=== PATIENT | male | born 2000 | race Caucasian/White ===

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

== ENCOUNTER 2023-02-17 14:13 | Inpatient (IN) ==
--- NOTE | 2023-02-17 14:38 | ED Triage Note ---
Date of Service February 17, 2023 Provider in Triage Author: Iris Don History of Present Illness This patient was briefly evaluated while in triage. An abbreviated physical exam was performed. This patient is a 23-year-old Male who presents to the ED for evaluation of CP, SOB, cough, tremors/weakness in left side started in Dr. Dukes's office Physical Exam GENERAL: NAD CARDIOVASCULAR: RRR RESPIRATORY: CTA ABDOMEN: BS x 4. Nontender to palpation. Initial orders for labs and / or imaging were placed and patient was placed in the waiting area until a bed is available. Please see further documentation for the full ED course.
--- NOTE | 2023-02-17 15:30 | XRay Report ---
XR chest 1V not portable HISTORY: 23 years-old Male CP, SOB, acute shortness of breath with chest pain COMPARISON: 09/01/2021 TECHNIQUE: PA view of the chest FINDINGS: Cardiomediastinal and hilar silhouettes are within normal limits. No pneumothorax, pleural effusion o r airspace consolidation. The bones appear grossly intact. There is mild levoscoliosis of the upper t horacic spine. IMPRESSION: No acute process. ACT 112: Negative or not required by law. The above report was generated using voice recognition software. It may contain grammatical, syntax o r spelling errors. Electronically signed by: Ramos Haque M.D. 02/17/2023 3:29 PM
--- NOTE | 2023-02-17 16:13 | CT Scan Report ---
CT SCAN OF THE BRAIN WITHOUT IV CONTRAST CLINICAL HISTORY: Left-sided weakness. COMPARISON STUDY: CT of the brain dated 03/26/2021. TECHNIQUE: Unenhanced axial CT scan of the brain is performed from the vertex to the skull base. A d ose lowering technique was utilized adhering to the principles of ALARA. CT DOSE: 547.75 mGy.cm FINDINGS: Brain parenchyma: The brain parenchyma is normal in appearance. There is no hemorrhage, mass effect, or evidence of acute territorial ischemia by CT criteria. Daugherty-white matter differentiation is preser anca. No extra-axial fluid collection is seen. Ventricles, sulci, cisterns: Normal in configuration. Cavum septum pellucidum is incidentally noted. Intracranial vasculature: The visualized intracranial vasculature at the skull base is normal in appe arance. Calvarium: Unremarkable. Sinuses and mastoids: There is mild mucosal thickening in the left sphenoid sinus. The remaining visu alized paranasal sinuses are clear. The mastoid air cells are well pneumatized. Orbits: The bony orbits are grossly intact. IMPRESSION: No acute intracranial abnormality. ACT 112: Negative or not required by law. Electronically signed by: Leighton Singh M.D. 02/17/2023 4:11 PM
[2023-02-17 17:05] LABS: Basophils # (auto) 0.06 K/uL (0.00-0.20); Basophils % (auto) 0.7 %; Eosinophils # (auto) 0.33 K/uL (0.00-0.50); Eosinophils % (auto) 3.8 %; Hematocrit (blood only) 45.6 % (42.0-52.0); Hemoglobin 16.5 g/dl (14.0-18.0); Immature Granulocytes % (auto) 1.2 %; Lymphocytes # (auto) 1.89 K/uL (1.20-3.40); Lymphocytes % (auto) 21.9 %; Mean Corpuscular Hemoglobin 32.2 pg (25.0-34.0); Mean Corpuscular Hgb Conc 36.2 g/dL (32.0-36.0); Mean Corpuscular Volume 89.1 fL (80.0-100.0); Mean Platelet Volume 9.2 fL (9.4-12.4); Monocytes # (auto) 0.58 K/uL (0.11-0.59); Monocytes % (auto) 6.7 %; Neutrophils # (auto) 5.68 K/uL (1.40-6.50); Neutrophils % (auto) 65.7 %; Platelet Count 232 K/uL (130-400); RDW Standard Deviation 39.5 fL (36.4-46.3); Red Blood Count 5.12 M/uL (4.70-6.10); White Blood Count 8.64 K/ul (4.8-10.8)
[2023-02-17 17:18] LABS: Alanine Aminotransferase 26 U/L (7-52); Albumin Globulin Ratio 1.4 (0.9-2); Albumin Level 4.6 gm/dl (3.4-5.0); Alkaline Phosphatase 53 U/L (34-104); Anion Gap 8 (3-11); Aspartate Aminotransferase 23 U/L (13-39); BUN Creatinine Ratio 14.3 (10-20); Bilirubin,Total 0.6 mg/dl (0.2-1.0); Blood Urea Nitrogen 11 mg/dl (6-23); Calcium 8.7 mg/dl (8.6-10.3); Carbon Dioxide 29 mmol/L (21-32); Chloride 104 mmol/L (98-107); Creatinine Clr Calc Pharmacy 166.7 ml/min; Est GFR (African American) > 150.0 ml/min; Est GFR (Non-African American) 129.7 ml/min; Globulin 3.2 gm/dl (2.5-4.0); Glucose 87 mg/dl (70-99(Fasting)); Potassium 3.8 mmol/L (3.5-5.1); Sodium 141 mmol/L (136-145); Total Protein 7.8 gm/dl (6.0-8.3)
[2023-02-17 17:21] LABS: Troponin I High Sensitivity < 2.3 pg/ml (0-20)
[2023-02-17 17:32] LABS: Partial Thromboplastin Ratio 1.1; Partial Thromboplastin Time 32 Seconds (21-31); Prothrombin Time 10.6 Seconds (9.0-12.0)
--- NOTE | 2023-02-17 18:04 | Emergency Department Note ---
Impression & Plan Acute left-sided muscle weakness, Numbness and tingling of left arm and leg, Autistic disorder ED Provider Note NAME: INDY ALMAZAN AGE: 23 SEX: M : 2000 ARRIVES VIA: Walk-In INFORMANT: Patient, ED PROVIDER(S): Bennett Krishna MD CHIEF COMPLAINT: Weakness MEDICAL DECISION MAKING: Patient presented due to concern for left-sided weakness and numbness. The patient does have weakness of the left arm and leg. Patient was initially seen in triage no stroke alert initiated but the patient has had symptoms ongoing since yesterday not a TNK candidate. I did speak with charge nurse in order to expedite his CT angiography of the head and neck as well as chest could be completed as the patient had also complained of some hemoptysis. MRI brain with and without contrast also ordered given the patient's prior history of thyroid malignancy. Patient's initial blood work was obtained and an IV was established. Blood work is grossly unremarkable. Patient has a normal white count H&H and platelet count with normal kidney function electrolytes. Troponin is not elevated. A TSH was added. Patient's MR brain is negative. Patient's CT head negative and chest x-ray negative. CT angiography is pending did speak with the admitting service. CTA of the head neck and chest negative. Patient was admitted to the medicine service after discussion with Dr. Bragg. Of note patient's symptoms are not progressively ascending i.e. GBS. Also not descending like botulinum or bulbar in nature like myasthenia. Discussion w/ other healthcare providers: Dr. Rodriguez inpatient medicine service Prior /Outside records reviewed: I reviewed an endocrinology visit note from Dr. Dukes from prior to the visit. The patient was seen and was noted to have a known history of papillary thyroid carcinoma and secondary hypothyroidism. Additional lab orders for put in place and the patient was to be started on levothyroxine 175 mcg daily. Differential diagnosis: Infection, dehydration, metabolic abnormality, hypo/hyperglycemia, electrolyte imbalance, anemia, UTI, pneumonia, thyroid dysfunction among others were considered. Diagnostics, as interpreted by me: ECG: Sinus bradycardia, rate of 59, normal intervals, normal axis no ST elevations. No significant change for comparison September 01, 2021 per Cardiac monitoring: An order was placed for continuous cardiac monitoring. The monitor shows a rate of 65 with sinus rhythm. Patient was placed on pulse oximetry Medical decision rules: None Imaging studies: I informally interpreted the patient's chest x-ray which does not show obvious pneumonia or pneumothorax with formal report to follow. I informally interpreted the patient's CT head which does not show obvious ICH HPI: Patient presents due to concern for weakness and associated fatigue complaining of decreased sensation in the left side along with associated weakness. The patient states that initially began around 2 PM but after further discussion the patient has had chronic weakness over the last several days which may have also been present yesterday but acutely worse around 2 PM. The patient also reports that he had a bout of this the last time he had an issue with his thyroid and was noted to have thyroid cancer. The patient did have a thyroidectomy and was and follow-up in clinic with Dr. Dukes with endocrinology where he developed the symptoms. Patient also does complain of some congestion. No alcohol or tobacco use. No falls or trauma. No prior history of stroke or mini stroke with the patient did require some therapy due to concern for weakness on his left side that he had 2 years ago. PAST MEDICAL HISTORY: See Below PAST SURGICAL HISTORY: See Below SOCIAL HISTORY: See Below HOME MEDICATIONS: See Below ALLERGIES: See Below VITALS: See Below PHYSICAL EXAMINATION: GENERAL: NAD, non-toxic. EYE EXAM: Normal conjunctiva. PERRL, no anisocoria and EOM's grossly intact w/o pain. OROPHARYNX: Moist mucus membranes, grossly normal dentition. NECK: Supple, no nuchal rigidity, no adenopathy, non-tender. No signs of meningismus. FROM of the neck with good chin to chest and neck extension. No stridor. LUNGS: Clear to auscultation. Normal chest wall mechanics. HEART: NSR, no MRG. ABDOMEN: Abdomen soft, non-tender, no masses, no rebound or guarding. BACK: No CVA TTP. SKIN: No rashes and no bruising. UPPER EXTREMITIES: Upper extremities are grossly normal. LOWER EXTREMITIES: Grossly normal, no edema. NEURO EXAM: A&O x3, cranial nerves II-XII grossly intact, normal speech, moves all 4 extremities but does have 4-5 strength in the left upper and left lower extremities. Past Med/Surg History Medical History Anal fissure follows with GI History of nerve impingement back Hx of Crohn's disease History of COVID-19 end of 12/2020--sneezing/headache--no issues now Nausea and vomiting after administration of anesthetic agent Hx of [place] cancer [place] [facility] [place] Convulsions hx of, last seizure age 9 Hx of gastric ulcer Iron deficiency anemia gets once a month infusions along w/ vitamin b-12 injections Post traumatic stress disorder Attention deficit disorder (ADD) Asperger syndrome per mother pt can read/write and sign own consents Stroke-like symptoms was related to thyroid cancer per pt's mom > ruled out stroke at [facility] per pt's mother approx 1 year ago Hx of seizure disorder last seizure age 9 > no longer follows with neuro Anemia Anxiety Esophagitis hx Gastritis hx Acid reflux Surgical History S/P epidural steroid injection Status post biopsy of thyroid gland malignant History of [place] [facility] for thyroid cancer > one dose radiation following Family history of reaction to anesthesia MOTHER-NAUSEA/VOMITTING History of esophagogastroduodenoscopy (EGD) History of colonoscopy History of ear surgery LEFT EAR DRUM REPAIR>PATCH Family History Father No significant active problems Mother No significant active problems Family history of diabetes mellitus Allergies Mother Diabetes Kidney stones Sister Crohn's disease Kidney stones Asthma Bleeding disorder Grandfather Stomach cancer Thyroid ca Diabetes Grandmother Stomach cancer Thyroid ca Diabetes Ulcerative colitis Grandmother (Maternal) Family history of diabetes mellitus Grandfather (Maternal) Hypertension Heart disease Family/Other Allergies "siblings" per new patient form Denies family history of Ovarian cancer Prostate cancer Myocardial infarction Breast cancer Colorectal cancer Social History Smoking Status: Current some day smoker Tobacco Type: Cigarettes Cigarettes Per Day: Only rare usage. A pack could last for months.; Second Hand Exposure: No; Do You Dip or Chew Tobacco: No; Hx Alcohol Use: No Hx Substance Use: No Preferred Language: Telugu Communication Ability: Effective Communication Ability Comment: pt can sign own consents Brokerage Office Manager Required: No Beliefs That Will Affect Care: None marital status: Single Current Living Situation: Parent and Family Current Living Situation Comment: lives with mother and father current occupational status: employed current occupation: Does oil changes at [employer] How many Children do You have: 0 Feels Safe at Home: Yes Childhood Exposure to Second-Hand Smoke: No Diet: regular caffeine: Yes Dental Care, Regularly: No Physical Activity Frequency: Daily Seatbelt Use: always Sunscreen Use: No Assistive Devices: None Allergies Allergies Allergy/AdvReac Type Severity Reaction Status Date / Time clonazepam Allergy Severe stroke/seizure Verified 02/17/23 13:06 like symptoms risperidone [From Risperdal] Allergy Severe stroke/seizure Verified 02/17/23 13:06 like symptoms valproic acid Allergy Severe stroke/seizure Verified 02/17/23 13:06 like symptoms adhesive Allergy Unknown skin Verified 02/17/23 13:06 "breaks out" nickel Allergy Unknown psoriasis Verified 02/17/23 13:06 surgical glue Allergy Intermediate Redness of Uncoded 02/17/23 13:06 Skin Home Meds Home Medications Medication Instructions Recorded Confirmed Tums 750 mg PO QAM 10/15/21 02/17/23 cyanocobalamin (vitamin B-12) 1,000 mcg subcut MONTHLY 02/17/23 02/17/23 1,000 mcg/mL injection solution escitalopram oxalate 5 mg tablet 5 mg PO QAM 02/17/23 02/17/23 famotidine 40 mg tablet 40 mg PO QAM 02/17/23 02/17/23 levothyroxine 150 mcg tablet 150 mcg PO DAILYBB 02/17/23 02/17/23 mercaptopurine 50 mg tablet 75 mg PO QAM Crohns colitis 02/17/23 02/17/23 sucralfate 1 gram tablet 0.5 g PO BID 02/17/23 02/17/23 Previous Rx's Medication Instructions Recorded buspirone 7.5 mg tablet 7.5 mg PO TID PRN anxiety #90 tabs 12/13/20 infliximab-axxq 100 mg intravenous See Rx Instructions IV .COMPLEX #5 10/30/21 solution (Avsola) ea guanfacine 1 mg tablet 1.5 mg (1.5 x 1 mg) PO BID #270 01/02/22 tabs cholecalciferol (vitamin D3) 10 800 unit PO DAILY vitamin D 11/13/22 mcg (400 unit) capsule insufficiency 1 month #60 caps methylphenidate HCl 5 mg tablet 5 mg PO QAM #30 tabs 02/01/23 levothyroxine 175 mcg tablet 175 mcg PO DAILY #30 tabs 02/18/23 Results & Data (ED) Vital Signs Vital Signs - 24 hr 02/17/23 14:36 02/17/23 16:41 02/17/23 18:37 Temperature 36.5 C Temperature Source Temporal Artery Scan Pulse Rate 73 Pulse Rate [Right Finger] 62 66 Pulse Rate from SpO2 Sensor Pulse Rhythm Regular Pulse Strength Normal Respiratory Rate 20 16 18 Respiratory Effort / Characteristics Non-Labored Spontaneous Non-Labored Respiratory Depth Normal Normal Respiratory Pattern Regular Blood Pressure 138/79 Blood Pressure [Right Arm] 141/79 H 130/80 Blood Pressure Mean 98 Blood Pressure Mean [Right Arm] 99 96 Blood Pressure Position Sitting Pulse Oximetry 96 99 95 Oxygen Delivery Method Room Air Room Air Room Air Sepsis Recent Fever Within 48 Hours No Sepsis New/Unexplained Change in Mental Status No Sepsis Action Taken by Nursing No Action Required 02/17/23 18:49 02/17/23 18:50 02/17/23 19:00 Temperature Temperature Source Pulse Rate 79 73 69 Pulse Rate [Right Finger] Pulse Rate from SpO2 Sensor 73 71 Pulse Rhythm Pulse Strength Respiratory Rate 18 20 Respiratory Effort / Characteristics Respiratory Depth Respiratory Pattern Blood Pressure Blood Pressure [Right Arm] Blood Pressure Mean Blood Pressure Mean [Right Arm] Blood Pressure Position Pulse Oximetry 100 99 Oxygen Delivery Method Sepsis Recent Fever Within 48 Hours Sepsis New/Unexplained Change in Mental Status Sepsis Action Taken by Nursing 02/17/23 19:00 02/17/23 19:23 02/17/23 20:10 Temperature Temperature Source Pulse Rate 78 Pulse Rate [Right Finger] Pulse Rate from SpO2 Sensor 79 Pulse Rhythm Pulse Strength Respiratory Rate 20 Respiratory Effort / Characteristics Respiratory Depth Respiratory Pattern Blood Pressure 133/82 138/86 Blood Pressure [Right Arm] Blood Pressure Mean 102 105 Blood Pressure Mean [Right Arm] Blood Pressure Position Pulse Oximetry 100 Oxygen Delivery Method Sepsis Recent Fever Within 48 Hours Sepsis New/Unexplained Change in Mental Status Sepsis Action Taken by Nursing 02/17/23 20:11 02/17/23 20:54 02/17/23 21:00 Temperature Temperature Source Pulse Rate Pulse Rate [Right Finger] Pulse Rate from SpO2 Sensor 63 71 60 Pulse Rhythm Pulse Strength Respiratory Rate Respiratory Effort / Characteristics Respiratory Depth Respiratory Pattern Blood Pressure Blood Pressure [Right Arm] Blood Pressure Mean Blood Pressure Mean [Right Arm] Blood Pressure Position Pulse Oximetry 99 98 97 Oxygen Delivery Method Sepsis Recent Fever Within 48 Hours Sepsis New/Unexplained Change in Mental Status Sepsis Action Taken by Nursing 02/17/23 21:00 02/17/23 21:30 02/17/23 21:30 Temperature Temperature Source Pulse Rate Pulse Rate [Right Finger] Pulse Rate from SpO2 Sensor 62 Pulse Rhythm Pulse Strength Respiratory Rate Respiratory Effort / Characteristics Respiratory Depth Respiratory Pattern Blood Pressure 126/73 123/78 Blood Pressure [Right Arm] Blood Pressure Mean 83 92 Blood Pressure Mean [Right Arm] Blood Pressure Position Pulse Oximetry 97 Oxygen Delivery Method Sepsis Recent Fever Within 48 Hours Sepsis New/Unexplained Change in Mental Status Sepsis Action Taken by Nursing 02/17/23 22:00 02/17/23 22:00 Temperature Temperature Source Pulse Rate Pulse Rate [Right Finger] Pulse Rate from SpO2 Sensor 65 Pulse Rhythm Pulse Strength Respiratory Rate 16 Respiratory Effort / Characteristics Respiratory Depth Respiratory Pattern Blood Pressure 141/96 H Blood Pressure [Right Arm] Blood Pressure Mean 113 Blood Pressure Mean [Right Arm] Blood Pressure Position Pulse Oximetry 97 Oxygen Delivery Method Sepsis Recent Fever Within 48 Hours Sepsis New/Unexplained Change in Mental Status Sepsis Action Taken by Jail Medications Current Medication List: was personally reviewed by me Laboratory Data Attestation: I reviewed the patient's lab results. 02/18/23 07:45 02/18/23 07:45 Lab Results 02/17/23 Range/Units 16:41 WBC 8.64 (4.8-10.8) K/ul RBC 5.12 (4.70-6.10) M/uL Hgb 16.5 (14.0-18.0) g/dl Hct 45.6 (42.0-52.0) % MCV 89.1 (80.0-100.0) fL MCH 32.2 (25.0-34.0) pg MCHC 36.2 H (32.0-36.0) g/dL RDW Std Deviation 39.5 (36.4-46.3) fL RDW Coeff of Santos 12.0 (11.5-14.5) % Plt Count 232 (130-400) K/uL MPV 9.2 L (9.4-12.4) fL Immature Gran % (Auto) 1.2 % Neut % (Auto) 65.7 % Lymph % (Auto) 21.9 % [place] % (Auto) 6.7 % Eos % (Auto) 3.8 % Baso % (Auto) 0.7 % Neut # (Auto) 5.68 (1.40-6.50) K/uL Lymph # (Auto) 1.89 (1.20-3.40) K/uL [place] # (Auto) 0.58 (0.11-0.59) K/uL Eos # (Auto) 0.33 (0.00-0.50) K/uL Baso # (Auto) 0.06 (0.00-0.20) K/uL Immature Gran # (Auto) 0.10 (0.01-0.20) K/uL PT 10.6 (9.0-12.0) Seconds INR 1.0 (0.9-1.1) APTT 32 H (21-31) Seconds PTT Ratio 1.1 Sodium 141 (136-145) mmol/L Potassium 3.8 (3.5-5.1) mmol/L Chloride 104 (98-107) mmol/L Carbon Dioxide 29 (21-32) mmol/L Anion Gap 8 (3-11) BUN 11 (6-23) mg/dl Creatinine 0.77 (0.6-1.4) mg/dl Est Cr Clr Drug Dosing 166.7 ml/min Est GFR ( Amer) > 150.0 ml/min Est GFR (Non-Af Amer) 129.7 ml/min BUN/Creatinine Ratio 14.3 (10-20) Glucose 87 (70-99(Fasting)) mg/dl Calcium 8.7 (8.6-10.3) mg/dl Magnesium 2.0 (1.7-2.4) mg/dl Total Bilirubin 0.6 (0.2-1.0) mg/dl AST 23 (13-39) U/L ALT 26 (7-52) U/L Alkaline Phosphatase 53 (34-104) U/L Troponin I High Sens < 2.3 (0-20) pg/ml Total Protein 7.8 (6.0-8.3) gm/dl Albumin 4.6 (3.4-5.0) gm/dl Globulin 3.2 (2.5-4.0) gm/dl Albumin/Globulin Ratio 1.4 (0.9-2) TSH 37.706 H (0.300-4.500) uIu/ml Free T4 0.87 (0.61-1.60) ng/dl Administered Medications Buspirone HCl (Buspirone 7.5 Mg Tab) 7.5 mg PO TID PRN PRN Reason: anxiety Stop: 03/20/23 00:07 Last Admin: 02/18/23 10:59 Dose: 7.5 mg Documented By: NICHOLAS Escitalopram Oxalate (Escitalopram Oxalate 10 Mg Tab) 5 mg PO DAILY [facility] Stop: 03/20/23 08:59 Last Admin: 02/18/23 10:58 Dose: 5 mg Documented By: NICHOLAS Famotidine (Famotidine 40 Mg Tablet) 40 mg PO DAILY [facility] Stop: 03/20/23 08:59 Last Admin: 02/18/23 10:58 Dose: 40 mg Documented By: NICHOLAS Guanfacine HCl (Guanfacine Hcl 1 Mg Tab) 1.5 mg PO BID [facility] Stop: 03/20/23 08:59 Last Admin: 02/18/23 10:56 Dose: 1.5 mg Documented By: NICHOLAS Levothyroxine Sodium (Levothyroxine Sodium 150 Mcg Tablet) 150 mcg PO DAILYBB [facility] Stop: 03/20/23 06:29 Last Admin: 02/18/23 06:22 Dose: 150 mcg Documented By: CHAR Mercaptopurine (Mercaptopurine 50 Mg Tab) 75 mg PO QAM [facility] Stop: 03/20/23 08:59 Last Admin: 02/18/23 10:59 Dose: 75 mg Documented By: NICHOLAS Co-signed By: DORA Methylphenidate HCl (Methylphenidate Hcl 10 Mg Tablet) 10 mg PO DAILY@1200 [facility] Stop: 03/04/23 11:59 Last Admin: 02/18/23 11:31 Dose: 10 mg Documented By: NICHOLAS Methylphenidate HCl (Methylphenidate Hcl 5 Mg Tablet) 5 mg PO QAM [facility] Stop: 03/04/23 08:59 Last Admin: 02/18/23 11:15 Dose: Not Given Documented By: NICHOLAS Sucralfate (Sucralfate 1 Gm Tab) 0.5 gm PO DAILY [facility] Stop: 03/20/23 08:59 Last Admin: 02/18/23 11:30 Dose: 0.5 gm Documented By: NICHOLAS Discontinued Medications Gadobutrol (Gadobutrol 65ml Vial) 9.1 ml IV ONCE ONE Stop: 02/17/23 19:55 Last Admin: 02/17/23 19:55 Dose: 9.1 ml Documented By: MLD Imaging Data Radiologist's Impression: Head CT 02/17/23 14:38 CT SCAN OF THE BRAIN WITHOUT IV CONTRAST CLINICAL HISTORY: Left-sided weakness. COMPARISON STUDY: CT of the brain dated 03/26/2021. TECHNIQUE: Unenhanced axial CT scan of the brain is performed from the vertex to the skull base. A dose lowering technique was utilized adhering to the principles of ALARA. CT DOSE: 547.75 mGy.cm FINDINGS: Brain parenchyma: The brain parenchyma is normal in appearance. There is no hemorrhage, mass effect, or evidence of acute territorial ischemia by CT criteria. Daugherty-white matter differentiation is preserved. No extra-axial fluid collection is seen. Ventricles, sulci, cisterns: Normal in configuration. Cavum septum pellucidum is incidentally noted. Intracranial vasculature: The visualized intracranial vasculature at the skull base is normal in appearance. Calvarium: Unremarkable. Sinuses and mastoids: There is mild mucosal thickening in the left sphenoid sinus. The remaining visualized paranasal sinuses are clear. The mastoid air cells are well pneumatized. Orbits: The bony orbits are grossly intact. IMPRESSION: No acute intracranial abnormality. ACT 112: Negative or not required by law. Electronically signed by: Leighton Singh M.D. 02/17/2023 4:11 PM Chest X-Ray 02/17/23 14:44 XR chest 1V not portable HISTORY: 23 years-old Male CP, SOB, acute shortness of breath with chest pain COMPARISON: 09/01/2021 TECHNIQUE: PA view of the chest FINDINGS: Cardiomediastinal and hilar silhouettes are within normal limits. No pneumothorax, pleural effusion or airspace consolidation. The bones appear grossly intact. There is mild levoscoliosis of the upper thoracic spine. IMPRESSION: No acute process. ACT 112: Negative or not required by law. The above report was generated using voice recognition software. It may contain grammatical, syntax or spelling errors. Electronically signed by: Ramos Haque M.D. 02/17/2023 3:[address] 02/17/23 14:38 CT SCAN OF THE BRAIN WITHOUT IV CONTRAST CLINICAL HISTORY: Left-sided weakness. COMPARISON STUDY: CT of the brain dated 03/26/2021. TECHNIQUE: Unenhanced axial CT scan of the brain is performed from the vertex to the skull base. A dose lowering technique was utilized adhering to the principles of ALARA. CT DOSE: 547.75 mGy.cm FINDINGS: Brain parenchyma: The brain parenchyma is normal in appearance. There is no hemorrhage, mass effect, or evidence of acute territorial ischemia by CT criteria. Daugherty-white matter differentiation is preserved. No extra-axial fluid collection is seen. Ventricles, sulci, cisterns: Normal in configuration. Cavum septum pellucidum is incidentally noted. Intracranial vasculature: The visualized intracranial vasculature at the skull base is normal in appearance. Calvarium: Unremarkable. Sinuses and mastoids: There is mild mucosal thickening in the left sphenoid sinus. The remaining visualized paranasal sinuses are clear. The mastoid air cells are well pneumatized. Orbits: The bony orbits are grossly intact. IMPRESSION: No acute intracranial abnormality. ACT 112: Negative or not required by law. Electronically signed by: Leighton Singh M.D. 02/17/2023 4:11 PM Chest X-Ray 02/17/23 14:44 XR chest 1V not portable HISTORY: 23 years-old Male CP, SOB, acute shortness of breath with chest pain COMPARISON: 09/01/2021 TECHNIQUE: PA view of the chest FINDINGS: Cardiomediastinal and hilar silhouettes are within normal limits. No pneumothorax, pleural effusion or airspace consolidation. The bones appear grossly intact. There is mild levoscoliosis of the upper thoracic spine. IMPRESSION: No acute process. ACT 112: Negative or not required by law. The above report was generated using voice recognition software. It may contain grammatical, syntax or spelling errors. Electronically signed by: Ramos Haque M.D. 02/17/2023 3:29 PM Brain MRI 02/17/23 19:07 Exam(s): MRI HEAD W/WO Contrast IV Amt: 9.1 CC GADAVIST EXAM: MR Head Without and With Intravenous Contrast CLINICAL HISTORY: Reason for exam: L sided weakness. TECHNIQUE: Magnetic resonance images of the head/brain without and with intravenous contrast in multiple planes. CONTRAST: Patient received 9.1 CC GADAVIST of IV contrast COMPARISON: CT head 02/17/2023. FINDINGS: Brain: No hemorrhage. No acute infarct. Ventricles: No ventriculomegaly. Cavum septum pellucidum et vergae. Bones/joints: Unremarkable. No acute fracture. Sinuses: Mucosal thickening throughout the paranasal sinuses. Fluid in the left maxillary sinus. Mastoid air cells: Unremarkable as visualized. No mastoid effusion. Orbits: Unremarkable as visualized. IMPRESSION: 1. No evidence of acute infarction. 2. Fluid in the left maxillary sinus. Recommend correlation for symptoms. Electronically signed by: Cole Brasher MD 02/17/23 21:02 PM Head CTA 02/17/23 19:07 Exam(s): CTA HEAD With Contrast IV Amt: 114ML OPTIRAY 320 EXAM: CT Angiography Head With Intravenous Contrast CLINICAL HISTORY: Reason for exam: L sided deficits. TECHNIQUE: Axial computed tomographic angiography images of the head with intravenous contrast. CTDI is 47.37 mGy and DLP is 1406.09 mGy-cm. Automated exposure control was utilized for the study. A dose lowering technique was utilized adhering to the principles of ALARA. MIP reconstructed images were created and reviewed. CONTRAST: Patient received 114ML OPTIRAY 320 of IV contrast COMPARISON: CT head 02/17/2023. MRI brain 02/17/2023. FINDINGS: Right internal carotid artery: No acute findings. Intracranial segment is patent with no significant stenosis. No aneurysm. Right anterior cerebral artery: Unremarkable. No occlusion or significant stenosis. No aneurysm. Right middle cerebral artery: Unremarkable. No occlusion or significant stenosis. No aneurysm. Right posterior cerebral artery: Unremarkable. No occlusion or significant stenosis. No aneurysm. Right vertebral artery: Unremarkable as visualized. Left internal carotid artery: No acute findings. Intracranial segment is patent with no significant stenosis. No aneurysm. Left anterior cerebral artery: Unremarkable. No occlusion or significant stenosis. No aneurysm. Left middle cerebral artery: Unremarkable. No occlusion or significant stenosis. No aneurysm. Left posterior cerebral artery: Unremarkable. No occlusion or significant stenosis. No aneurysm. Left vertebral artery: Unremarkable as visualized. Basilar artery: Unremarkable. No occlusion or significant stenosis. No aneurysm. Sinuses: Fluid in the left maxillary sinus. IMPRESSION: 1. No large vessel occlusion. 2. Fluid in the left maxillary sinus. Recommend correlation for symptoms. Electronically signed by: Cole Brasher MD 02/17/23 21:41 PM Neck CTA 02/17/23 19:07 Exam(s): CTA NECK With Contrast IV Amt: 114ML OPTIRAY 320 EXAM: CT Angiography Neck With Intravenous Contrast CLINICAL HISTORY: Reason for exam: L sided deficits. TECHNIQUE: Routine carotid CT angiography protocol was performed with intravenous contrast. NASCET criteria using the distal ICAs for comparison were used for evaluation of stenoses. CTDI is 23.12 mGy and DLP is 1359.43 mGy-cm. Automated exposure control was utilized for the study. A dose lowering technique was utilized adhering to the principles of ALARA. MIP reconstructed images were created and reviewed. CONTRAST: Patient received 114ML OPTIRAY 320 of IV contrast COMPARISON: None. FINDINGS: VASCULATURE: Right common carotid artery: Unremarkable. No occlusion or significant stenosis. No dissection. Right internal carotid artery: Unremarkable. Extracranial segment is patent with no occlusion or significant stenosis. No dissection. Right external carotid artery: Unremarkable. No occlusion. Right vertebral artery: Unremarkable. No occlusion or significant stenosis. No dissection. Left common carotid artery: Unremarkable. No occlusion or significant stenosis. No dissection. Left internal carotid artery: Unremarkable. Extracranial segment is patent with no occlusion or significant stenosis. No dissection. Left external carotid artery: Unremarkable. No occlusion. Left vertebral artery: Unremarkable. No occlusion or significant stenosis. No dissection. NECK: Bones/joints: Unremarkable. No acute fracture. Soft tissues: Unremarkable. Lung apices: Clear. CAROTID STENOSIS REFERENCE USING NASCET CRITERIA: % ICA stenosis = (1 - narrowest ICA diameter/diameter of distal cervical ICA) x 100. Mild - <50% stenosis. Moderate - 50-69% stenosis. Severe - 70-94% stenosis. Near occlusion - 95-99% stenosis. Occluded - 100% stenosis. IMPRESSION: No dissection, pseudoaneurysm, or hemodynamically significant stenosis of the carotid or vertebral arteries. Electronically signed by: Cole Brasher MD 02/17/23 21:44 PM Chest CTA 02/17/23 19:19 Exam(s): CTA CHEST IV Amt: 114ML OPTIRAY 320 EXAM: CT Angiography Chest With Intravenous Contrast CLINICAL HISTORY: Reason for exam: PE. TECHNIQUE: Axial computed tomographic angiography images of the chest with intravenous contrast. CTDI is 70 mGy and DLP is 1406.09 mGy-cm. Automated exposure control was utilized for the study. A dose lowering technique was utilized adhering to the principles of ALARA. MIP reconstructed images were created and reviewed. COMPARISON: CT chest 10/31/2020. FINDINGS: Pulmonary arteries: Unremarkable. No pulmonary embolism. Aorta: No acute findings. No thoracic aortic aneurysm. Lungs: Unremarkable. No mass. No consolidation. Pleural space: Unremarkable. No significant effusion. No pneumothorax. Heart: Unremarkable. No cardiomegaly. No significant pericardial effusion. No evidence of RV dysfunction. Bones/joints: No acute fracture. No dislocation. Soft tissues: Unremarkable. Lymph nodes: Unremarkable. No enlarged lymph nodes. IMPRESSION: No pulmonary embolism or other acute abnormality in the chest. Electronically signed by: Cole Brasher MD 02/17/23 21:50 PM Discharge Plan Visit Data Chief Complaint: Illness Stated Complaint: COUGHING BLOOD, L SIDED WEAKNESS, BP HIGH ED Provider: Bennett Krishna Discharge Problem: Acute left-sided muscle weakness, Numbness and tingling of left arm and leg, Autistic disorder Patient Disposition: Admitted As Inpatient Discharge Instructions Interventions: ED Discharge Assessment Last Done: 02/17/23 23:17
[2023-02-17 19:52] LABS: Thyroid Stimulating Hormone 37.706 uIu/ml (0.300-4.500)
[2023-02-17] MEDS ORDERED: GADOBUTROL 65ML VIAL IV ONE (19:54)
[2023-02-17 20:26] LABS: T4 Free Thyroxine 0.87 ng/dl (0.61-1.60)
--- NOTE | 2023-02-17 21:03 | Magnetic Resonance Report ---
Exam(s): MRI HEAD W/WO Contrast IV Amt: 9.1 CC GADAVIST EXAM: MR Head Without and With Intravenous Contrast CLINICAL HISTORY: Reason for exam: L sided weakness. TECHNIQUE: Magnetic resonance images of the head/brain without and with intravenous contrast in multiple planes. CONTRAST: Patient received 9.1 CC GADAVIST of IV contrast COMPARISON: CT head 02/17/2023. FINDINGS: Brain: No hemorrhage. No acute infarct. Ventricles: No ventriculomegaly. Cavum septum pellucidum et vergae. Bones/joints: Unremarkable. No acute fracture. Sinuses: Mucosal thickening throughout the paranasal sinuses. Fluid in the left maxillary sinus. Mastoid air cells: Unremarkable as visualized. No mastoid effusion. Orbits: Unremarkable as visualized. IMPRESSION: 1. No evidence of acute infarction. 2. Fluid in the left maxillary sinus. Recommend correlation for symptoms. Electronically signed by: Cole Brasher MD 02/17/23 21:02 PM
--- NOTE | 2023-02-17 21:29 | History & Physical Report ---
Date of Service February 17, 2023 Assessment & Plan (1) Left-sided weakness: Plan: MR Brain, CTA Head/Neck/Chest negative for acute stroke. There was fluid noted in the left maxillary sinus. Etiology for weakness unclear. Could be related to high levels of TSH. Complex migraine would also be on the differential. Would appreciate input from our neurological colleagues Neuro consult - appreciate recs AM CBC BMP (2) Hypothyroidism, secondary: Plan: Acquired as patient s/p thyroidectomy. Would consider increasing levothyroxine pending neuro consult. (3) Hx of thyroid cancer: Plan: Stable. Follows with endocrine. (4) Hemoptysis: Plan: Likely not truly hemoptysis as nose bleed preceded the event. If recurs consider pulm consult. (5) Papillary thyroid carcinoma: Plan: Stable. Follows with endo. Plan Code status: full DVT ppx: low risk, ambulation FENGI: regular Dispo: MedSurg History of Present Illness Chief Complaint: left sided weakness Primary Care Provider: Josh Roberts, DO 23 y/o male with a PMHx of autism spectrum disorder, ADHD, papillary thyroid cancer s/p surgical resection, mood disorder, and Crohn's disease presented with concern for left sided weakness and fatigue. In the ED patient underwent thorough neurological workup with MR Brain, CT Head/Chest/Neck, EKG, and CXR all without acute findings. There was some sinus fullness on the left side, but otherwise nothing to explain symptoms. Labs notable for TSH 37,000. Follow up thyroid studies were ordered and are pending. Admission was requested for further workup of new symptoms. Upon my interview the patient reports - worsening fatigue over the last two weeks. Patient with new left sided weakness that started sometime in the last 24 hours. Patient also with increased tremulousness and feelings of being jittery. Patient also experiencing blurry vision. Patient was seen at the endocrinologists office today who recommended evaluation in the ED. Reportedly patient also was coughing up blood. Upon further discussion the patient had an anxiety attack resulting in a nose bleed and after that he did cough up some blood. No fevers or chills. No new abdominal pain. No urinary symptoms or change in bowel habits. No sinus congestion or cold like symptoms. No recent tick bites. Patient with acquired hypothyroidism on 150 mcg levothyroxine for replacement. Patient reportedly experiences chest pain with large increased in dose so they have been slowly uptitrating this medication. Of note, the patient's mother was recently diagnosed with multiple peripheral schwannomas. Allergies Allergy/AdvReac Type Severity Reaction Status Date / Time clonazepam Allergy Severe stroke/seizure Verified 02/17/23 13:06 like symptoms risperidone [From Risperdal] Allergy Severe stroke/seizure Verified 02/17/23 13:06 like symptoms valproic acid Allergy Severe stroke/seizure Verified 02/17/23 13:06 like symptoms adhesive Allergy Unknown skin Verified 02/17/23 13:06 "breaks out" nickel Allergy Unknown psoriasis Verified 02/17/23 13:06 surgical glue Allergy Intermediate Redness of Uncoded 02/17/23 13:06 Skin Home Medications Medication Instructions Recorded Confirmed Type buspirone 7.5 mg tablet 7.5 mg PO TID PRN anxiety #90 tabs 12/13/20 02/17/23 Rx Tums 750 mg PO QAM 10/15/21 02/17/23 History infliximab-axxq 100 mg intravenous See Rx Instructions IV .COMPLEX #5 10/30/21 02/17/23 Rx solution ([facility]) ea guanfacine 1 mg tablet 1.5 mg (1.5 x 1 mg) PO BID #270 01/02/22 02/17/23 Rx tabs cholecalciferol (vitamin D3) 10 800 unit PO DAILY vitamin D 11/13/22 02/17/23 Rx mcg (400 unit) capsule insufficiency 1 month #60 caps methylphenidate HCl 5 mg tablet 5 mg PO QAM #30 tabs 02/01/23 02/17/23 Rx cyanocobalamin (vitamin B-12) 1,000 mcg subcut MONTHLY 02/17/23 02/17/23 History 1,000 mcg/mL injection solution escitalopram oxalate 5 mg tablet 5 mg PO QAM 02/17/23 02/17/23 History famotidine 40 mg tablet 40 mg PO QAM 02/17/23 02/17/23 History levothyroxine 150 mcg tablet 150 mcg PO DAILYBB 02/17/23 02/17/23 History mercaptopurine 50 mg tablet 75 mg PO QAM Crohns colitis 02/17/23 02/17/23 History sucralfate 1 gram tablet 0.5 g PO BID 01/03/24 01/03/24 History levothyroxine 175 mcg tablet 175 mcg PO DAILY #30 tabs 02/18/23 02/18/23 Rx Past Med/Surg History Medical History (Updated 02/18/23 @ 16:58 by Sandra Blankenship PA-C) Hematochezia Functional neurological symptom disorder with mixed symptoms History of nerve impingement back Convulsions hx of, last seizure age 9 Esophagitis hx Surgical History (Updated 02/18/23 @ 14:41 by Anand Dukes MD) History of placement of ear tubes S/P epidural steroid injection History of total thyroidectomy @ [facility] [place] 12/2020 for thyroid cancer > one dose radiation following Family history of reaction to anesthesia MOTHER-NAUSEA/VOMITTING History of esophagogastroduodenoscopy (EGD) History of colonoscopy History of ear surgery LEFT EAR DRUM REPAIR>PATCH Family History Father No significant active problems Mother No significant active problems Family history of diabetes mellitus Allergies Mother Diabetes Kidney stones Sister Crohn's disease Kidney stones Asthma Bleeding disorder Grandfather Stomach cancer Thyroid ca Diabetes Grandmother Stomach cancer Thyroid ca Diabetes Ulcerative colitis Grandmother (Maternal) Family history of diabetes mellitus Grandfather (Maternal) Hypertension Heart disease Family/Other Allergies "siblings" per new patient form Denies family history of Ovarian cancer Prostate cancer Myocardial infarction Breast cancer Colorectal cancer Social History Smoking Status: Current some day smoker Tobacco Type: Cigarettes Cigarettes Per Day: Only rare usage. A pack could last for months.; Second Hand Exposure: No; Do You Dip or Chew Tobacco: No; Hx Alcohol Use: No Hx Substance Use: No Preferred Language: Salvadorean Communication Ability: Effective Communication Ability Comment: pt can sign own consents Lead Case Manager Required: No Beliefs That Will Affect Care: None marital status: Single Current Living Situation: Parent and Family Current Living Situation Comment: lives with mother and father current occupational status: employed current occupation: Does oil changes at [email or web address] How many Children do You have: 0 Feels Safe at Home: Yes Childhood Exposure to Second-Hand Smoke: No Diet: regular caffeine: Yes Dental Care, Regularly: No Physical Activity Frequency: Daily Seatbelt Use: always Sunscreen Use: No Assistive Devices: None Review of Systems 2 Review of Systems: See HPI Physical Exam 2 Physical Exam: Gen: well appearing male in NAD HEENT: AT NC PERRL EOMI MMM CV: RRR no m/r/g clinically well perfused Resp: CTAB no wheezing no increased work of breathing Abd: soft, non-distended, non-tender MSK: no obvious deformities Skin: no rashes or bruises noted Psych: appropriate mood and affect Neuro: 5/5 strength in all muscle groups bilaterally, increased effort on the left. Sensation to light touch decreased on the left side of the face, arms, and legs as well. Otherwise no focal deficits. Results & Data Results & Data Vital Signs (Past 12 Hours) Vital Signs Temp Pulse Pulse Resp BP BP Pulse Ox 02/17/23 20:11 99 02/17/23 20:10 138/86 02/17/23 19:23 78 20 100 02/17/23 19:00 133/82 02/17/23 19:00 69 20 99 02/17/23 18:50 73 18 100 02/17/23 18:49 79 02/17/23 18:37 66 18 130/80 95 02/17/23 16:41 62 16 141/79 H 99 02/17/23 14:36 36.5 C 73 20 138/79 96 O2 Del Method 02/17/23 20:11 02/17/23 20:10 02/17/23 19:23 02/17/23 19:00 02/17/23 19:00 02/17/23 18:50 02/17/23 18:49 02/17/23 18:37 Room Air 02/17/23 16:41 Room Air 02/17/23 14:36 Room Air Laboratory Results 02/17/23 16:41 02/17/23 16:[address] 02/17/23 14:38 FINDINGS: Brain parenchyma: The brain parenchyma is normal in appearance. There is no hemorrhage, mass effect, or evidence of acute territorial ischemia by CT criteria. Daugherty-white matter differentiation is preserved. No extra-axial fluid collection is seen. Ventricles, sulci, cisterns: Normal in configuration. Cavum septum pellucidum is incidentally noted. Intracranial vasculature: The visualized intracranial vasculature at the skull base is normal in appearance. Calvarium: Unremarkable. Sinuses and mastoids: There is mild mucosal thickening in the left sphenoid sinus. The remaining visualized paranasal sinuses are clear. The mastoid air cells are well pneumatized. Orbits: The bony orbits are grossly intact. IMPRESSION: No acute intracranial abnormality. Chest X-Ray 02/17/23 14:44 FINDINGS: Cardiomediastinal and hilar silhouettes are within normal limits. No pneumothorax, pleural effusion or airspace consolidation. The bones appear grossly intact. There is mild levoscoliosis of the upper thoracic spine. IMPRESSION: No acute process. Brain MRI 02/17/23 19:07 FINDINGS: Brain: No hemorrhage. No acute infarct. Ventricles: No ventriculomegaly. Cavum septum pellucidum et vergae. Bones/joints: Unremarkable. No acute fracture. Sinuses: Mucosal thickening throughout the paranasal sinuses. Fluid in the left maxillary sinus. Mastoid air cells: Unremarkable as visualized. No mastoid effusion. Orbits: Unremarkable as visualized. IMPRESSION: 1. No evidence of acute infarction. 2. Fluid in the left maxillary sinus. Recommend correlation for symptoms. Head CTA 02/17/23 19:07 FINDINGS: Right internal carotid artery: No acute findings. Intracranial segment is patent with no significant stenosis. No aneurysm. Right anterior cerebral artery: Unremarkable. No occlusion or significant stenosis. No aneurysm. Right middle cerebral artery: Unremarkable. No occlusion or significant stenosis. No aneurysm. Right posterior cerebral artery: Unremarkable. No occlusion or significant stenosis. No aneurysm. Right vertebral artery: Unremarkable as visualized. Left internal carotid artery: No acute findings. Intracranial segment is patent with no significant stenosis. No aneurysm. Left anterior cerebral artery: Unremarkable. No occlusion or significant stenosis. No aneurysm. Left middle cerebral artery: Unremarkable. No occlusion or significant stenosis. No aneurysm. Left posterior cerebral artery: Unremarkable. No occlusion or significant stenosis. No aneurysm. Left vertebral artery: Unremarkable as visualized. Basilar artery: Unremarkable. No occlusion or significant stenosis. No aneurysm. Sinuses: Fluid in the left maxillary sinus. IMPRESSION: 1. No large vessel occlusion. 2. Fluid in the left maxillary sinus. Recommend correlation for symptoms. Neck CTA 02/17/23 19:07 VASCULATURE: Right common carotid artery: Unremarkable. No occlusion or significant stenosis. No dissection. Right internal carotid artery: Unremarkable. Extracranial segment is patent with no occlusion or significant stenosis. No dissection. Right external carotid artery: Unremarkable. No occlusion. Right vertebral artery: Unremarkable. No occlusion or significant stenosis. No dissection. Left common carotid artery: Unremarkable. No occlusion or significant stenosis. No dissection. Left internal carotid artery: Unremarkable. Extracranial segment is patent with no occlusion or significant stenosis. No dissection. Left external carotid artery: Unremarkable. No occlusion. Left vertebral artery: Unremarkable. No occlusion or significant stenosis. No dissection. NECK: Bones/joints: Unremarkable. No acute fracture. Soft tissues: Unremarkable. Lung apices: Clear. IMPRESSION: No dissection, pseudoaneurysm, or hemodynamically significant stenosis of the carotid or vertebral arteries. Chest CTA 02/17/23 19:19 FINDINGS: Pulmonary arteries: Unremarkable. No pulmonary embolism. Aorta: No acute findings. No thoracic aortic aneurysm. Lungs: Unremarkable. No mass. No consolidation. Pleural space: Unremarkable. No significant effusion. No pneumothorax. Heart: Unremarkable. No cardiomegaly. No significant pericardial effusion. No evidence of RV dysfunction. Bones/joints: No acute fracture. No dislocation. Soft tissues: Unremarkable. Lymph nodes: Unremarkable. No enlarged lymph nodes. IMPRESSION: No pulmonary embolism or other acute abnormality in the chest. Supervising Physician Co-Signing Physician Notes Attending addendum: I have physically seen this patient, have supervised the medical residents activities, and agree with the H&P unless as otherwise noted. Assessment and Plan: Left-sided weakness- The patient will be admitted to telemetry for serial cardiac enzymes, serial EKG's, cardiac rhythm monitoring and a 2-D echocardiogram with Dopplers. CT head without contrast negative CTA head and neck negative CTA chest negative next MRI brain negative Neurochecks Benign examination Consult neurology Thyroid cancer/secondary hypothyroidism- Status post thyroidectomy TSH 37.706, Reportedly on levothyroxine 50 mcg alternating 175 mcg daily Free T4 and free T3 Coordinate care with endocrinology Resident Activity Tracking Resident Involvement: Resident Care Provided Care Provided: Adult [facility] Medicine
--- NOTE | 2023-02-17 21:42 | CT Scan Report ---
Exam(s): CTA HEAD With Contrast IV Amt: 114ML OPTIRAY 320 EXAM: CT Angiography Head With Intravenous Contrast CLINICAL HISTORY: Reason for exam: L sided deficits. TECHNIQUE: Axial computed tomographic angiography images of the head with intravenous contrast. CTDI is 47.37 mGy and DLP is 1406.09 mGy-cm. Automated exposure control was utilized for the study. A dose lowering technique was utilized adhering to the principles of ALARA. MIP reconstructed images were created and reviewed. CONTRAST: Patient received 114ML OPTIRAY 320 of IV contrast COMPARISON: CT head 02/17/2023. MRI brain 02/17/2023. FINDINGS: Right internal carotid artery: No acute findings. Intracranial segment is patent with no significant stenosis. No aneurysm. Right anterior cerebral artery: Unremarkable. No occlusion or significant stenosis. No aneurysm. Right middle cerebral artery: Unremarkable. No occlusion or significant stenosis. No aneurysm. Right posterior cerebral artery: Unremarkable. No occlusion or significant stenosis. No aneurysm. Right vertebral artery: Unremarkable as visualized. Left internal carotid artery: No acute findings. Intracranial segment is patent with no significant stenosis. No aneurysm. Left anterior cerebral artery: Unremarkable. No occlusion or significant stenosis. No aneurysm. Left middle cerebral artery: Unremarkable. No occlusion or significant stenosis. No aneurysm. Left posterior cerebral artery: Unremarkable. No occlusion or significant stenosis. No aneurysm. Left vertebral artery: Unremarkable as visualized. Basilar artery: Unremarkable. No occlusion or significant stenosis. No aneurysm. Sinuses: Fluid in the left maxillary sinus. IMPRESSION: 1. No large vessel occlusion. 2. Fluid in the left maxillary sinus. Recommend correlation for symptoms. Electronically signed by: Cole Brasher MD 02/17/23 21:41 PM
--- NOTE | 2023-02-17 21:45 | CT Scan Report ---
Exam(s): CTA NECK With Contrast IV Amt: 114ML OPTIRAY 320 EXAM: CT Angiography Neck With Intravenous Contrast CLINICAL HISTORY: Reason for exam: L sided deficits. TECHNIQUE: Routine carotid CT angiography protocol was performed with intravenous contrast. NASCET criteria using the distal ICAs for comparison were used for evaluation of stenoses. CTDI is 23.12 mGy and DLP is 1359.43 mGy-cm. Automated exposure control was utilized for the study. A dose lowering technique was utilized adhering to the principles of ALARA. MIP reconstructed images were created and reviewed. CONTRAST: Patient received 114ML OPTIRAY 320 of IV contrast COMPARISON: None. FINDINGS: VASCULATURE: Right common carotid artery: Unremarkable. No occlusion or significant stenosis. No dissection. Right internal carotid artery: Unremarkable. Extracranial segment is patent with no occlusion or significant stenosis. No dissection. Right external carotid artery: Unremarkable. No occlusion. Right vertebral artery: Unremarkable. No occlusion or significant stenosis. No dissection. Left common carotid artery: Unremarkable. No occlusion or significant stenosis. No dissection. Left internal carotid artery: Unremarkable. Extracranial segment is patent with no occlusion or significant stenosis. No dissection. Left external carotid artery: Unremarkable. No occlusion. Left vertebral artery: Unremarkable. No occlusion or significant stenosis. No dissection. NECK: Bones/joints: Unremarkable. No acute fracture. Soft tissues: Unremarkable. Lung apices: Clear. CAROTID STENOSIS REFERENCE USING NASCET CRITERIA: % ICA stenosis = (1 - narrowest ICA diameter/diameter of distal cervical ICA) x 100. Mild - <50% stenosis. Moderate - 50-69% stenosis. Severe - 70-94% stenosis. Near occlusion - 95-99% stenosis. Occluded - 100% stenosis. IMPRESSION: No dissection, pseudoaneurysm, or hemodynamically significant stenosis of the carotid or vertebral arteries. Electronically signed by: Cole Brasher MD 02/17/23 21:44 PM
--- NOTE | 2023-02-17 21:51 | CT Scan Report ---
Exam(s): CTA CHEST IV Amt: 114ML OPTIRAY 320 EXAM: CT Angiography Chest With Intravenous Contrast CLINICAL HISTORY: Reason for exam: PE. TECHNIQUE: Axial computed tomographic angiography images of the chest with intravenous contrast. CTDI is 70 mGy and DLP is 1406.09 mGy-cm. Automated exposure control was utilized for the study. A dose lowering technique was utilized adhering to the principles of ALARA. MIP reconstructed images were created and reviewed. COMPARISON: CT chest 10/31/2020. FINDINGS: Pulmonary arteries: Unremarkable. No pulmonary embolism. Aorta: No acute findings. No thoracic aortic aneurysm. Lungs: Unremarkable. No mass. No consolidation. Pleural space: Unremarkable. No significant effusion. No pneumothorax. Heart: Unremarkable. No cardiomegaly. No significant pericardial effusion. No evidence of RV dysfunction. Bones/joints: No acute fracture. No dislocation. Soft tissues: Unremarkable. Lymph nodes: Unremarkable. No enlarged lymph nodes. IMPRESSION: No pulmonary embolism or other acute abnormality in the chest. Electronically signed by: Cole Brasher MD 02/17/23 21:50 PM
[2023-02-18] MEDS ORDERED: POLYETHYLENE (MIRALAX) 17 GM PACK PO PRN (00:08)
[2023-02-18] MEDS ORDERED: ONDANSETRON INJ 2 MG/ML 2 ML VIAL IV PRN (00:08)
[2023-02-18] MEDS ORDERED: LEVOTHYROXINE SODIUM 150 MCG TABLET PO SCH (06:30)
[2023-02-18 08:20] LABS: Hematocrit (blood only) 44.9 % (42.0-52.0); Hemoglobin 16.1 g/dl (14.0-18.0); Mean Corpuscular Hemoglobin 31.9 pg (25.0-34.0); Mean Corpuscular Hgb Conc 35.9 g/dL (32.0-36.0); Mean Corpuscular Volume 89.1 fL (80.0-100.0); Mean Platelet Volume 9.3 fL (9.4-12.4); Platelet Count 210 K/uL (130-400); RDW Coefficient of Variation 12.4 % (11.5-14.5); RDW Standard Deviation 40.5 fL (36.4-46.3); Red Blood Count 5.04 M/uL (4.70-6.10); White Blood Count 7.33 K/ul (4.8-10.8)
[2023-02-18 08:41] LABS: BUN Creatinine Ratio 10.8 (10-20); Calcium 9.1 mg/dl (8.6-10.3); Est GFR (African American) 135.5 ml/min; Est GFR (Non-African American) 116.9 ml/min; Potassium 3.9 mmol/L (3.5-5.1)
--- NOTE | 2023-02-18 09:06 | Hospitalist Progress Note ---
Date of Service February 18, 2023 Assessment & Plan (1) Left-sided weakness: Plan: MR Brain, CTA Head/Neck/Chest negative for acute stroke. There was fluid noted in the left maxillary sinus. Etiology for weakness unclear. Could be related to high levels of TSH. Complex migraine would also be on the differential. Would appreciate input from our neurological colleagues Neuro consult - considier functional neurologic disorder, ordered lyme (neg) esr 16, normal is 15 or less, ck normal pending c spine mri treat sinusitit with doxycycline 100 mg bid (2) Hypothyroidism, secondary: Plan: Acquired as patient s/p thyroidectomy. increasing levothyroxine, consider out pt endocrinology folllow up (3) Hx of thyroid cancer: Plan: Stable. Follows with endocrine. (4) Hemoptysis: Plan: Likely not truly hemoptysis as nose bleed preceded the event. (5) Papillary thyroid carcinoma: Plan: Stable. Follows with endo. Plan Code status: full DVT ppx: low risk, ambulation Admission and Anticipated Discharge Date Admission Date: February 17, 2023 Subjective pt was seen in the presence of his significant other, has improvement of symptoms but has had some neck issues since his thyroid surgery, feels a positional component to it and has had some issues when under physical strain to his left arm Physical Exam Physical Exam: no objective sign of deficits with exception of noted subjective decreased sensation to entire left face, torso arm and leg cardiac exam is regular lungs are clear Results & Data Results & Data Vital Signs (Past 12 Hours) Vital Signs Temp Pulse Pulse Resp BP BP Pulse Ox 02/18/23 08:50 98.2 F 69 20 144/87 H 100 02/18/23 07:41 02/18/23 00:08 98.1 F 60 18 131/68 97 02/17/23 23:00 126/72 02/17/23 23:00 63 19 95 02/17/23 22:52 68 02/17/23 22:30 135/81 02/17/23 22:30 68 16 98 02/17/23 22:00 16 97 02/17/23 22:00 141/96 H 02/17/23 21:30 123/78 02/17/23 21:30 97 O2 Del Method 02/18/23 08:50 Room Air 02/18/23 07:41 Room Air 02/18/23 00:08 Room Air 02/17/23 23:00 02/17/23 23:00 02/17/23 22:52 02/17/23 22:30 02/17/23 22:30 02/17/23 22:00 02/17/23 22:00 02/17/23 21:30 02/17/23 21:30 Laboratory Results reviewed cbc reviewed chemistry reviewed lyme disease negative revioewed ck normal reviewed esr PG Care Time/CCT Total # of Minutes Spent Total Time Spent with Patient: Total time spent is greater than 50% in coordination of care (as documented) at patient's floor/unit and/or counseling patient: Coding Level of Care Code 27772 SUB INP/OBS CARE 2/35MIN Diagnoses Left-sided weakness R53.1 Hypothyroidism, secondary E03.8 Hx of thyroid cancer Z85.850 Hemoptysis R04.2 Papillary thyroid carcinoma C73
--- NOTE | 2023-02-18 09:23 | Neurology Consultation ---
Date of Consultation February 18, 2023 Assessment & Plan (1) Left-sided weakness: (2) Numbness and tingling of left arm and leg: (3) Hypothyroidism, secondary: (4) Functional neurological symptom disorder with mixed symptoms: (5) ADHD (attention deficit hyperactivity disorder), inattentive type: (6) Autistic disorder: (7) Anxiety: Plan This patient had relatively sudden onset of increased left-sided weakness and numbness February 17. Testing revealed no vascular lesions or stroke with CT angiography, and MRI of the brain with and without contrast. On neurologic examination he has inconsistencies and likely a "functional" neurologic exam with no true or pathologic weakness. He has subjective sensory deficits which "split the midline", and are not consistent with pathology. He does have some left-sided neck pain and I cannot entirely exclude a cervical spine lesion (however he has sensory deficits on the face and scalp which would have to come higher than the cervical spine and he had evaluation for the symptoms back in 2020 which were negative as well). The patient has significant hypothyroidism with elevated TSH in the mid 30s. He has ADHD, autism, and anxiety which have been relatively stable. Patient did have a headache on admission and part of his symptoms could have been migrainous in nature. I am more inclined to believe that anxiety triggered his symptoms. Overall, I do not believe hypothyroidism directly causes the left-sided weakness and sensory deficits. Hypothyroidism typically causes a myopathy, which would be bilateral and symmetrical, and include myalgias, cramps, stiffness, elevated CK, and even rhabdomyolysis. A polyneuropathy is possible as well. He does not display any signs of myopathy or polyneuropathy on exam. Certainly correcting his thyroid issue will make him feel better. Recommendations: 1. I am not sure of any other testing is going to reveal any further problem, however, consider MRI of the cervical spine with and without contrast to make sure there is no recurrent tumor or other issue which could give him left-sided problems. 2. Lyme antibody titer, ESR, and CK could be considered as well 3. Increase levothyroxine. I will leave this to the hospitalist/Dr. Dukes 4. Increase activity as able and I could follow-up as an outpatient in 3 to 4 weeks (with PA), however, ideally I would like to see him back for evaluation once his TSH has been normalized. Overall, I spent a total of 165 minutes with this case including review of records, review of MRI films, report generation, direct evaluation the patient at bedside, and discussion of the case with the patient and RN at bedside, keyana boswell's mother via telephone, and Dr. Sparrow, including differential diagnosis and treatment options. History of Present Illness Reason for Consultation: Patient is a 23-year-old, who I was asked to see at the request of Dr. Denny, for neurologic consultation regarding new onset left-sided weakness and other issues. Requesting Physician: Dr. Denny Attending Physician: Capo Sparrow MD History of Present Illness The history is obtained from the patient's mother via telephone, old records, and the patient himself at bedside. Apparently he had febrile seizures as a child with his most recent one being somewhere between the ages of 10 and 12. He has not been on any anticonvulsants since and he has had no seizure activity known for the last 10 to 12 years. He was diagnosed with autistic disorder, ADHD, and anxiety, resulting in treatment over the years. Currently he is on 10 mg methylphenidate daily with 5 mg escitalopram and 7.5 mg 3 times a day of buspirone. His mood has been fairly stable although he can get stressed and anxious over things at times. He works at a [employer] doing [employer]. In October 2020, he had the sudden onset of left-sided weakness and numbness. Stroke alert was called but he was not given tPA because of his history of rectal bleeding at times. CT angiography of the head and neck was unremarkable and MRI of the brain was unremarkable. He saw Dr. Sosa who felt that the patient's exam was not consistent with pathology and was more functional given his giveaway weakness on the left side and "splitting the midline" on the left with his sensory exam. Repeat MRI 2 days later with and without contrast was unremarkable as well. He had an MRI of the cervical spine with and without contrast which was unremarkable. The patient had a headache when he presented to the emergency room and a complicated migraine was deemed possible. 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 He underwent a total thyroidectomy plus neck dissection for lymph nodes left greater than right side at [facility] in [place]. He then underwent a radioactive iodine treatment and has been on thyroid replacement ever since. Apparently he was following with physicians at [facility] but there was some trouble with follow-up consistency. He had an elevated TSH in June of this year. He ended up seeing Dr. Dukes February 17, in the early afternoon and a TSH was 35. This is on a stable dose of 150 mcg levothyroxine daily. Following the thyroidectomy surgery he has GI symptoms increased and he was diagnosed with Crohn's disease. The patient has had mild nonspecific headaches and pain once or twice a week helped some with [id number] medications. This headache would be a heaviness on the left frontal down the left side of the neck into the left axilla. The patient states that ever since his original left-sided weakness event October 2020, he has had a background mild weakness and numbness in the left arm and leg compared to the right which she feels is normal. The patient believes that over the last week he has had trouble with some weakness of his left arm and possibly left leg. He notices when he lifts heavy objects he will have trembling and trouble. This could lead to spilling of objects. Sometime in the late morning of February 17 he had the onset of a significant headache bifrontally with a "red face" and nosebleed. He had increased anxiety with this. Sometime between 12 noon and 1 PM on February 17 he felt a sudden increased weakness in his left arm and leg. He felt that his face was more tingly as were the left arm and leg. He has not had a significant headache like this for a couple of years he believes. He arrived in the emergency room February 17 at 1436 with a temperature 36.5, respiratory rate 20 and regular, pulse 73 and regular, blood pressure 138/79 and O2 saturation 96%. In the emergency room they felt his strength was mildly weak in the left arm and leg but he had no other focal deficits, meningeal signs, or encephalopathy. CBC and CHEM profile were unremarkable. TSH was 35. CT scan of the head was unremarkable. Chest x-ray was unremarkable. CT angiography of the head and neck revealed no significant vascular stenoses or anomalies. CT angiography of the chest was unremarkable. MRI of the brain with and without contrast was normal. I reviewed these films. Today, he feels better with less headache and less weakness and numbness on the left side. CBC and CHEM profile were unremarkable and the repeat TSH was 37. B12 on January 25 was normal at 540 Nursing reports no new issues or problems since admission Allergies Allergy/AdvReac Type Severity Reaction Status Date / Time clonazepam Allergy Severe stroke/seizure Verified 02/17/23 13:06 like symptoms risperidone [From Risperdal] Allergy Severe stroke/seizure Verified 02/17/23 13:06 like symptoms valproic acid Allergy Severe stroke/seizure Verified 02/17/23 13:06 like symptoms adhesive Allergy Unknown skin Verified 02/17/23 13:06 "breaks out" nickel Allergy Unknown psoriasis Verified 02/17/23 13:06 surgical glue Allergy Intermediate Redness of Uncoded 02/17/23 13:06 Skin Home Medications Medication Instructions Recorded Confirmed Type buspirone 7.5 mg tablet 7.5 mg PO TID PRN anxiety #90 tabs 12/13/20 02/17/23 Rx Tums 750 mg PO QAM 10/15/21 02/17/23 History infliximab-axxq 100 mg intravenous See Rx Instructions IV .COMPLEX #5 10/30/21 02/17/23 Rx solution (Avs[facility]) ea guanfacine 1 mg tablet 1.5 mg (1.5 x 1 mg) PO BID #270 01/02/22 02/17/23 Rx tabs cholecalciferol (vitamin D3) 10 800 unit PO DAILY vitamin D 11/13/22 02/17/23 Rx mcg (400 unit) capsule insufficiency 1 month #60 caps methylphenidate HCl 5 mg tablet 5 mg PO QAM #30 tabs 02/01/23 02/17/23 Rx cyanocobalamin (vitamin B-12) 1,000 mcg subcut MONTHLY 02/17/23 02/17/23 History 1,000 mcg/mL injection solution escitalopram oxalate 5 mg tablet 5 mg PO QAM 02/17/23 02/17/23 History famotidine 40 mg tablet 40 mg PO QAM 02/17/23 02/17/23 History levothyroxine 150 mcg tablet 150 mcg PO DAILYBB 02/17/23 02/17/23 History mercaptopurine 50 mg tablet 75 mg PO QAM Crohns colitis 02/17/23 02/17/23 History sucralfate 1 gram tablet 0.5 g PO BID 02/17/23 02/17/23 History Patient History Medical History Anal fissure follows with GI History of nerve impingement back Hx of Crohn's disease History of COVID-19 end of 12/2020--sneezing/headache--no issues now Nausea and vomiting after administration of anesthetic agent Hx of thyroid cancer had thyroidectomy @ [facility] 12/2020 Convulsions hx of, last seizure age 9 Hx of gastric ulcer Iron deficiency anemia gets once a month infusions along w/ vitamin b-12 injections Post traumatic stress disorder Attention deficit disorder (ADD) Asperger syndrome per mother pt can read/write and sign own consents Stroke-like symptoms was related to thyroid cancer per pt's mom > ruled out stroke at [facility] per pt's mother approx 1 year ago Hx of seizure disorder last seizure age 9 > no longer follows with neuro Anemia Anxiety Esophagitis hx Gastritis hx Acid reflux Surgical History S/P epidural steroid injection Status post biopsy of thyroid gland malignant History of total thyroidectomy @ [facility] 12/2020 for thyroid cancer > one dose radiation following Family history of reaction to anesthesia MOTHER-NAUSEA/VOMITTING History of esophagogastroduodenoscopy (EGD) History of colonoscopy History of ear surgery LEFT EAR DRUM REPAIR>PATCH Family History Father No significant active problems Mother No significant active problems Family history of diabetes mellitus Allergies Mother Diabetes Kidney stones Sister Crohn's disease Kidney stones Asthma Bleeding disorder Grandfather Stomach cancer Thyroid ca Diabetes Grandmother Stomach cancer Thyroid ca Diabetes Ulcerative colitis Grandmother (Maternal) Family history of diabetes mellitus Grandfather (Maternal) Hypertension Heart disease Family/Other Allergies "siblings" per new patient form Denies family history of Ovarian cancer Prostate cancer Myocardial infarction Breast cancer Colorectal cancer Social History (Updated 02/18/23 @ 09:35 by Alejandro Ruiz MD) Smoking Status: Current some day smoker Tobacco Type: Cigarettes Cigarettes Per Day: Only rare usage. A pack could last for months.; Second Hand Exposure: No; Do You Dip or Chew Tobacco: No; Hx Alcohol Use: No Hx Substance Use: No Preferred Language: Citizen Of [place] Communication Ability: Effective Communication Ability Comment: pt can sign own consents Dog Food Shredder Operator Required: No Beliefs That Will Affect Care: None marital status: Single Current Living Situation: Parent and Family Current Living Situation Comment: lives with mother and father current occupational status: employed current occupation: Does oil changes at [employer] How many Children do You have: 0 Feels Safe at Home: Yes Childhood Exposure to Second-Hand Smoke: No Diet: regular caffeine: Yes Dental Care, Regularly: No Physical Activity Frequency: Daily Seatbelt Use: always Sunscreen Use: No Assistive Devices: None Review of Systems Constitutional: + fatigue and + weakness; no fever Eyes: + problem reported (Eyes feel "tyler" an d irritated); no diplopia, no eye pain and no worsening vision Ear, Nose, Mouth, Throat: no ear pain, no tinnitus, no hearing loss, no dizziness, no snoring, no hoarseness and no dysphagia Respiratory: no cough and no dyspnea Cardiovascular: no chest pain, no palpitations and no lightheadedness Gastrointestinal: no abdominal pain, no nausea and no vomiting Musculoskeletal: + neck pain; no back pain, no radicular pain, no joint pain and no myalgia Integumentary: no rash and no lesions Neurologic: + localized weakness, + numbness and + h eadache(s); no gait abnormality, no generalized weakness, no tingling, no tremor(s), no abnormal movements, no abnormal speech, no confusion and no memory loss Psychiatric: + anxiety; no depression, no irritabilit y, no difficulty concentrating, no confusion and no hallucinations Endocrine: no fatigue and no flushing Hematologic / Lymphatic: no easy bleeding and no easy bruising Allergy / Immunological: no urticaria and no problem reported Exam (Neuro) Physical Exam: The patient is right-handed, but is ambidextrous. The patient is awake, alert, and attentive. Speech is normal without any aphasia or dysarthria. Mentation and thought processes are intact, with full orientation and normal fund of knowledge. Mood and affect are normal and appropriate. Appearance and grooming are normal. Short and long-term memory are intact to conversation. Pupils are 4 mm bilaterally and reactive to light. Extraocular eye muscles are intact without nystagmus. Visual acuity and visual powers seem normal grossly to confrontation. Patient felt that he could not feel sharp or dull sensation on the left side of the face (V1, V2, and V3) compared to the right which was normal. However, he also "split the midline" with sensory deficits in his scalp, occiput, neck having decreased sensation on the left compared to the right which was normal. Corneal reflexes are positive bilaterally. Facial strength and symmetry was normal bilaterally. Hearing seems intact grossly to voice and finger rub bilaterally. Palate moves well without asymmetry. There is normal sternocleidomastoid and trapezius strength bilaterally. Tongue is midline with good strength bilaterally. Neck has a full range of motion with, however, he has some discomfort with lateral movement and AP movement. There are no cervical bruits bilaterally. There are no cranial or ocular bruits. Heart is without murmur. There is a regular rhythm and rate. Cervical spine had some tenderness to palpation midline and to the left and paraspinal muscles. The thoracic and lumbar spine are nontender to palpation. Gait is narrow based, with good arm swing, turns, and stance. Balance is normal eyes open or closed. With outstretched arms there is no drift. There are no resting, postural, or action tremors. There is no ataxia with finger to nose testing. There is good facility in the hands. No other abnormal involuntary movements are noted. The motor strength exam was somewhat challenging, but with persistence I believe the patient had normal strength proximally and distally in all major muscle groups in the arms and legs bilaterally. He had some giveaway weakness initially with certain muscles in the left arm and left leg, with simultaneous stimulation of the muscle group on each side, but ended up having great strength and no pathologic weakness. Toe extensors are normal and there is good bulk in the extensor digitorum brevis muscles bilaterally. The limbs have good tone without rigidity or spasticity. There is no atrophy noted in the muscles. Muscle bulk is normal, there is no tenderness to palpation, no myotonia to percussion, and no fasciculations seen. Sensory examination was interesting in that he had decreased sensation to pin and light touch as well as tuning fork in the left arm and leg compared to the right arm and leg no matter where he was tested. He also had decreased sensation along the entire left trunk splitting the midline (compared to the right which was normal). Reflexes are 1/4 in the biceps, triceps, and brachioradialis tendons bilaterally. Quadriceps and Achilles tendon reflexes were 2/4 bilaterally. Toes are downgoing with plantar stimulation bilaterally. Peripheral pulses are present and of normal quality distally in all 4 limbs. There is no peripheral edema noted in the limbs. Results & Data Vital Signs (Past 12 Hours) Vital Signs Temp Pulse Pulse Resp BP BP Pulse Ox 02/18/23 08:50 36.8 C 69 20 144/87 H 100 02/18/23 07:41 02/18/23 00:08 36.7 C 60 18 131/68 97 02/17/23 23:00 126/72 02/17/23 23:00 63 19 95 02/17/23 22:52 68 02/17/23 22:30 135/81 02/17/23 22:30 68 16 98 02/17/23 22:00 16 97 02/17/23 22:00 141/96 H 02/17/23 21:30 123/78 02/17/23 21:30 97 02/17/23 21:00 126/73 02/17/23 21:00 97 O2 Del Method 02/18/23 08:50 Room Air 02/18/23 07:41 Room Air 02/18/23 00:08 Room Air 02/17/23 23:00 02/17/23 23:00 02/17/23 22:52 02/17/23 22:30 02/17/23 22:30 02/17/23 22:00 02/17/23 22:00 02/17/23 21:30 02/17/23 21:30 02/17/23 21:00 02/17/23 21:00 PG Care Time/CCT Total # of Minutes Spent Total Time Spent with Patient: Total time spent is greater than 50% in coordination of care (as documented) at patient's floor/unit and/or counseling patient: Coding Level of Care Code 89323 INT INP/OBS CARE 3/75MIN Diagnoses Left-sided weakness R53.1 Numbness and tingling of left arm and leg R20.0; R20.2 Hypothyroidism, secondary E03.8 Functional neurological symptom disorder with mixed symptoms F44.7 ADHD (attention deficit hyperactivity disorder), inattentive type F90.0 Autistic disorder F84.0 Anxiety F41.9 Time Spent (min) 165 Comment Add modifiers as able
[2023-02-18] MEDS: guanFACINE HCL 1 MG TAB PO SCH ×2 (10:56→21:30)
[2023-02-18] MEDS: FAMOTIDINE 40 MG TABLET PO SCH (10:58)
[2023-02-18] MEDS: ESCITALOPRAM OXALATE 10 MG TAB PO SCH (10:58)
[2023-02-18] MEDS: busPIRone 7.5 MG TAB PO PRN (10:59)
[2023-02-18] MEDS: MERCAPTOPURINE 50 MG TAB PO SCH (10:59)
[2023-02-18] MEDS: METHYLPHENIDATE HCL 5 MG TABLET PO SCH (11:15)
[2023-02-18] MEDS: SUCRALFATE 1 GM TAB PO SCH (11:30)
[2023-02-18] MEDS ORDERED: METHYLPHENIDATE HCL 10 MG TABLET PO SCH (12:00)
--- NOTE | 2023-02-18 13:50 | Electrocardiogram Report ---
Test Reason : Blood Pressure : / mmHG Vent. Rate : 059 BPM Atrial Rate : 059 BPM P-R Int : 192 ms QRS Dur : 112 ms QT Int : 396 ms P-R-T Axes : 070 080 059 degrees QTc Int : 392 ms Sinus bradycardia Otherwise normal ECG When compared with ECG of 01-SEP-2021 15:18, No significant change was found Confirmed by Tl Cornelius ([id number]) on 02/18/2023 1:50:41 PM Referred By: REFERRED SELF Confirmed By:Tl Cornelius
[2023-02-18] MEDS: ACETAMINOPHEN 500 MG TAB PO PRN (14:14)
[2023-02-18] MEDS ORDERED: LORazepam 1 MG in SYRINGE 0.5 ML IV STA ×2 (14:49→15:25)
[2023-02-18] MEDS: DOXYCYCLINE HYCLATE 100 MG CAP PO SCH ×2 (15:05→22:20)
[2023-02-18] MEDS: hydrOXYzine HCl 25 MG TAB PO PRN ×2 (15:10→21:49)
[2023-02-18 16:00] LABS: Lyme Ab IgG w/WB Rflx Negative (Negative); Lyme Ab IgM w/WB Rflx Negative (Negative)
[2023-02-18] MEDS ORDERED: GADOBUTROL 30ML VIAL IV ONE (20:48)
--- NOTE | 2023-02-18 21:10 | Magnetic Resonance Report ---
Exam(s): MRI C SPINE IV Amt: 9mL Gadavist given IV EXAM: MR Cervical Spine With Intravenous Contrast CLINICAL HISTORY: Reason for exam: eval for myelopathy or ubo. TECHNIQUE: Magnetic resonance images of the cervical spine with intravenous contrast in multiple planes. CONTRAST: Patient received 9mL Gadavist given IV of IV contrast COMPARISON: 10/31/2020 FINDINGS: Vertebrae: Maintenance of height of the vertebral bodies. No subluxation. Marrow signal intensity within normal limits. No evidence for fracture. No abnormal enhancement postcontrast. Spinal cord: Caliber and signal intensity of the cervical cord within normal limits. No intraspinal hematoma or collection. No abnormal enhancement postcontrast. Soft tissues: Prevertebral soft tissues are unremarkable. DISCS/SPINAL CANAL/NEURAL FORAMINA: C2-C3: Unremarkable. No significant disc disease. No stenosis. C3-C4: Unremarkable. No significant disc disease. No stenosis. C4-C5: Unremarkable. No significant disc disease. No stenosis. C5-C6: Unremarkable. No significant disc disease. No stenosis. C6-C7: Unremarkable. No significant disc disease. No stenosis. C7-T1: Unremarkable. No significant disc disease. No stenosis. IMPRESSION: Normal cervical spine MRI. No evidence for demyelinating disease. Electronically signed by: Vinny Trujillo M.D. 02/18/23 21:09 PM
--- NOTE | 2023-02-19 01:47 | Billing Data ---
Date of Service February 19, 2023 Coding Level of Care Code 15573 INT INP/OBS CARE
[2023-02-19] MEDS ORDERED: LEVOTHYROXINE SODIUM 175 MCG TABLET PO SCH (06:30)
[2023-02-19] MEDS: DOXYCYCLINE HYCLATE 100 MG CAP PO SCH (09:17)
[2023-02-19] MEDS: FAMOTIDINE 40 MG TABLET PO SCH (09:18)
[2023-02-19] MEDS: MERCAPTOPURINE 50 MG TAB PO SCH (09:18)
[2023-02-19] MEDS: guanFACINE HCL 1 MG TAB PO SCH (09:18)
[2023-02-19] MEDS: ESCITALOPRAM OXALATE 10 MG TAB PO SCH (09:18)
[2023-02-19] MEDS: busPIRone 7.5 MG TAB PO PRN (09:19)
[2023-02-19] MEDS: ACETAMINOPHEN 500 MG TAB PO PRN (09:19)
[2023-02-19] MEDS: METHYLPHENIDATE HCL 5 MG TABLET PO SCH (09:22)
[2023-02-19] MEDS: SUCRALFATE 1 GM TAB PO SCH (10:52)
--- NOTE | 2023-02-19 16:50 | Discharge Summary ---
Date of Service February 19, 2023 Admission HPI Per Admitting Provider 23 y/o male with a PMHx of autism spectrum disorder, ADHD, papillary thyroid cancer s/p surgical resection, mood disorder, and Crohn's disease presented with concern for left sided weakness and fatigue. In the ED patient underwent thorough neurological workup with MR Brain, CT Head/Chest/Neck, EKG, and CXR all without acute findings. There was some sinus fullness on the left side, but otherwise nothing to explain symptoms. Labs notable for TSH 37,000. Follow up thyroid studies were ordered and are pending. Admission was requested for further workup of new symptoms. Upon my interview the patient reports - worsening fatigue over the last two weeks. Patient with new left sided weakness that started sometime in the last 24 hours. Patient also with increased tremulousness and feelings of being jittery. Patient also experiencing blurry vision. Patient was seen at the endocrinologists office today who recommended evaluation in the ED. Reportedly patient also was coughing up blood. Upon further discussion the patient had an anxiety attack resulting in a nose bleed and after that he did cough up some blood. No fevers or chills. No new abdominal pain. No urinary symptoms or change in bowel habits. No sinus congestion or cold like symptoms. No recent tick bites. Patient with acquired hypothyroidism on 150 mcg levothyroxine for replacement. Patient reportedly experiences chest pain with large increased in dose so they have been slowly uptitrating this medication. Of note, the patient's mother was recently diagnosed with multiple peripheral schwannomas. Principal Diagnosis Functional neurological disorder Acquired hypothyroidism Discharge Exam Patient awake alert has no focal issues overnight anxiety yesterday has resolved Discharge Data Allergies Allergy/AdvReac Type Severity Reaction Status Date / Time clonazepam Allergy Severe stroke/seizure Verified 02/17/23 13:06 like symptoms risperidone [From Risperdal] Allergy Severe stroke/seizure Verified 02/17/23 13:06 like symptoms valproic acid Allergy Severe stroke/seizure Verified 02/17/23 13:06 like symptoms adhesive Allergy Unknown skin Verified 02/17/23 13:06 "breaks out" nickel Allergy Unknown psoriasis Verified 02/17/23 13:06 surgical glue Allergy Intermediate Redness of Uncoded 02/17/23 13:06 Skin Consultations 02/18/23 00:08 Consult Neurology Routine Ordered Studies 02/17/23 14:38 CT head/brain wo con Stat 02/17/23 19:07 CT angio head w con Stat CT angio neck with con Stat MR brain wo/w con Stat 02/17/23 19:19 CT angio chest PE protocol Stat 02/18/23 14:51 MRI Cervical [MR cervical spine wo/w con] Routine Hospital Course (1) Left-sided weakness: MR Brain, CTA Head/Neck/Chest negative for acute stroke. There was fluid noted in the left maxillary sinus. Etiology for weakness unclear. Could be related to high levels of TSH. Complex migraine would also be on the differential. Would appreciate input from our neurological colleagues Neuro consult - checked MRI cervical spine no issues no ubo normal lyme, normal esr, normal ck Neurolgy feels this is Functional neurological disorder (2) Hypothyroidism, secondary: Acquired as patient s/p thyroidectomy. Would consider increasing levothyroxine 175mg (3) Hx of thyroid cancer: Stable. Follows with endocrine. (4) Hemoptysis: Likely not truly hemoptysis as nose bleed preceded the event no recurrence (5) Papillary thyroid carcinoma: Stable. Follows with endo. Plan Code status: full Total Time Total Time Spent Total Time Spent (In Minutes): Discharge took less than 30 minutes Discharge Plan Discharge Items Patient Disposition: Home - Self-Care Reason For Visit: LEFT SIDED WEAKNESS Discharge Diagnosis: functional neurological disorder acquired hypothyroidism Activity: Resume your previous activity Non-emergency contact: Primary Care Provider and Specialist Call non-emergency contact if: your symptoms worsen Follow-up/Referrals: Josh Roberts DO [Primary Care Provider] - 02/26/23 12:00 pm Diet: Regular Addtl Attending Provider Instructions: increase your thyroid medication to 175 micrograms a day and be sure to have your thyroid blood tests in about 6 weeks follow up with your family doctor and your behavioral health provider Pending Studies at Discharge: No Stand-Alone Forms: My [employer], Smoking Cessation Medications and DC Order Prescriptions: New levothyroxine [Synthroid] 175 mcg Tablet 175 mcg PO DAILYBB Qty: 30 5RF Continued cholecalciferol (vitamin D3) 10 mcg (400 unit) capsule 800 unit PO DAILY 30 Days Qty: 60 3RF methylphenidate HCl 5 mg tablet 5 mg PO QAM Qty: 30 0RF Patient Comments: QAM sucralfate 1 gram tablet 0.5 g PO BID levothyroxine 175 mcg tablet 175 mcg PO DAILY Qty: 30 2RF buspirone 7.5 mg tablet 7.5 mg PO TID PRN (Reason: anxiety) Qty: 90 5RF Avsola 100 mg recon soln See Rx Instructions IV .COMPLEX Qty: 5 8RF Rx Instructions: 5 mg/kg intravenously given at 0, 2, 6 weeks then every 8 weeks thereafter; guanfacine 1 mg tablet 1.5 mg PO BID Qty: 270 3RF famotidine 40 mg tablet 40 mg PO QAM cyanocobalamin (vitamin B-12) 1,000 mcg/mL Solution 1,000 mcg SUBCUT MONTHLY mercaptopurine 50 mg tablet 75 mg PO QAM escitalopram oxalate 5 mg tablet 5 mg PO QAM Tums 750 mg PO QAM Discontinued levothyroxine 150 mcg tablet 150 mcg PO DAILYBB Discharge Orders: Discharge Order (Routine); Ordered 02/19/23 Ordered By: Capo Sparrow Admission Data Admit Date/Time: 02/17/23 22:22 Attending Provider: Capo Sparrow Admit Provider: Dory Denny Primary Care Provider: Josh Roberts Other Providers: Alejandro Ruiz Other Interventions: Discharge Summary Assessment (RN) Last Done: 02/19/23 10:44 Coding Level of Care Code 25610 IN/OBS DISCH 30 MIN/LESS Diagnoses Left-sided weakness R53.1 Hypothyroidism, secondary E03.8 Hx of thyroid cancer Z85.850 Hemoptysis R04.2 Papillary thyroid carcinoma C73
== END 2023-02-19 12:41 | disposition home or self-care (01) | DRG 880 ==
LOC: ED 14:13 → SUATTDRO 22:22 → 3N 22:22